=== PATIENT | male | born 1955 | race Caucasian/White ===

== ENCOUNTER 2023-08-15 07:57 | Outpatient (AMB) | payer MEDICARE, BC, SELFPAY ==
--- NOTE | 2023-08-15 08:21 | MHC.OFFVIS ---
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 He reports back in he became really ill and they couldn't figure out what was wrong with me , but this resulted in severe pain of the back and hips. He has constant pain throughout the body. Back End Developer Required: No Allergies No Known Allergies Allergy (Verified 08/15/23 08:28) Medication List - Last Reconciled 08/15/23 by Ambar Lewis MD aspirin 81 mg PO DAILY duloxetine 30 mg PO DAILY omeprazole 40 mg PO DAILY rosuvastatin 40 mg PO DAILY HPI HPI Comments History of Present Illness Details 67y/o male is referred here for hereditary and idiopathic neuropathy . He was diagnosed many years ago by Dr. Ruiz, was tried on Gabapentin . He also has h/o degenerative disc disease in the lumbar region , neurogenic claudication, seen by Dr. Clay and under care of [facility]. In spring he had sore throat , lost his hearing and had eye infection - does not know diagnosis but since then he had increased back pain with hip pain ( he always had back pain, this was different ) with spasm in the right hip pain. It was severe for 3 weeks . He was seen by [employer] and was prescribed duloxetine which is helping. He has numbness, tingling in kwaku feet, and once in a while in his hands .He also has sharp pain, stabbing pain in his feet mostly in the evenings and rest and has to get up and move around. He has leg cramps when he lies down and has his legs in a certain way It does not wake him up from sleep.He feels his gait has worsened. He has occasional urinary urgency . He has h/o BHAVANI on CPAP for over 20 years managed at [facility]. [facility] Medical History (Updated 08/15/23 @ 08:53 by Ambar Lewis MD) DJD (degenerative joint disease), lumbar Lyme arthritis Barretts esophagus CAD (coronary artery disease) COVID-19 Osteoarthritis BPH (benign prostatic hyperplasia) Erectile dysfunction RBBB (Unknown) Peripheral neuropathy Hyperlipidemia BHAVANI on CPAP Restless legs syndrome (RLS) Surgical History (Updated 08/15/23 @ 08:30 by Maggie Benjamin CMA) H/O shoulder surgery H/O: knee surgery History of carpal tunnel surgery Family History (Updated 08/15/23 @ 08:31 by Maggie Benjamin CMA) Father No problems noted. Mother No problems noted. (Updated 08/15/23 @ 08:32 by Maggie Benjamin CMA) Household Members: Spouse Housing: House Alcohol intake: current Patient Tobacco Use Status: Former Tobacco user Years Smoked: 20 years Physical Exam Vital Signs: Last Vital Signs Pulse 102 H 08/15/23 08:25 Resp 16 08/15/23 08:25 BP 120/72 08/15/23 08:25 Pulse Ox 95 08/15/23 08:25 Oxygen Delivery Method Room Air 08/15/23 08:25 BMI result Body Mass Index 32.1 Const General: cooperative and healthy appearing Nutritional Appearance: overweight Orientation/consciousness: patient oriented x3 Eyes Pupils: Equal, round and reactive pupils present Neuro General: patient oriented x3, gait normal, tone normal, moves all extremities and no focal motor deficits Cranial nerves: Yes Facial sensation intact/muscles of mastication intact, Yes Equal, round and reactive pupils present, Yes Bilaterally intact EOM present, Yes Nystagmus not present, Yes Normal facial strength present, Yes Midline tongue present and Yes Symmetric palate elevation present Cognition (Neuro): normal cognition Gait exam (Neuro): Antalgic gait present Motor exam (neuro): 5/5 motor strength present throughout and Normal motor muscle tone present throughout Deep tendon reflexes (DTR's): Right triceps reflex intensity grade: 1+, Left triceps reflex intensity grade: 1+, Rt Biceps (C5, C6): 1+, Left biceps reflex intensity grade: 1+, Right brachioradialis reflex intensity grade: 1+, Left brachioradialis reflex intensity grade: 1+, Right patellar reflex intensity grade: 1+ and Left patellar reflex intensity grade: 1+ Coordination: [id number] test normal Assessment & Plan Assessment & Plan (1) Peripheral neuropathy: Code(s): G62.9 - Polyneuropathy, unspecified (2) Restless legs syndrome (RLS): Code(s): G25.81 - Restless legs syndrome Plan I will reevaluate him with EMG NCS Continue duloxetine 30mg qd I will trial him on requip 0.25 mg 1-2 tabs at 4 pm and 9 pm Orders: Orders NE electromyogram (EMG) Today G62.9 - Polyneuropathy, unspecified Medications: New ropinirole 1-2 tab at 4pm , 1-2 tabs at 8 pm orally bedtime; 120 tabs 6RF Coding Level of Care Code New Pt Level 4 (24056) Diagnoses Peripheral neuropathy G62.9 Restless legs syndrome (RLS) G25.81
[2023-08-15 08:25] VITALS: BP 120/72; PULSE 102; RESP 16; O2SAT 95; BMI 32.1
== END 2023-08-15 09:03 | disposition home or self-care (01) ==
PROVIDERS: PCP Internal Medicine; Visit Provider Psychiatry & Neurology Neurology
DX: G62.9 Polyneuropathy, unspecified (principal); G25.81 Restless legs syndrome
CPT/HCPCS: 99204

== ENCOUNTER → 2023-08-15 07:57 | Outpatient (BNVA) | payer MEDICARE, BC, SELFPAY | PROVIDERS: PCP Internal Medicine; Visit Provider Psychiatry & Neurology Neurology | DX: G62.9 Polyneuropathy, unspecified (principal); G25.81 Restless legs syndrome | CPT/HCPCS: 99202 ==

== ENCOUNTER 2023-11-08 12:54 | Outpatient (REF) | payer MEDICARE, BC, SELFPAY ==
--- NOTE | 2023-11-08 13:00 | EMG_ITS ---
Chief complaint: Chronic numbness bilateral feet, diagnosed neuropathy by Dr. Ruiz several years ago Reason for referral: Evaluate for neuropathy Referred by: Dr. Lewis Procedure done: Bilateral lower extremity NCS/EMG Precautions and/or limitations: None The limb temperature was monitored continuously and remained between 32-36 degrees C during the performance of the NCS. Nerve Conduction Studies Anti Sensory Summary Table ?Stim Site NR Onset (ms) Norm Onset (ms) Peak (ms) Norm Peak (ms) O-P Amp (?V) Norm O-P Amp Site1 Site2 Delta-0 (ms) Dist (cm) Juan (m/s) Norm Juan (m/s) Left Sural Anti Sensory (Lat Mall) Calf NR <4.0 >5.0 Calf Lat Mall 14.0 Right Sural Anti Sensory (Lat Mall) Calf NR <4.0 >5.0 Calf Lat Mall 14.0 Motor Summary Table ?Stim Site NR Onset (ms) Norm Onset (ms) O-P Amp (mV) Norm O-P Amp iAmp (mV) Amp (1st) (%) Site1 Site2 Delta-0 (ms) Dist (cm) Juan (m/s) Norm Juan (m/s) Right Peroneal Motor (Ext Dig Brev) Ankle ? 6.0 <4.0 0.4 >2.5 0.5 100.0 Ankle Ext Dig Brev 6.0 0.0 B Fib ? 17.6 0.8 0.8 200.0 B Fib Ankle 11.6 41.0 35 >40 Poplt ? 18.7 0.8 0.9 200.0 Poplt B Fib 1.1 4.0 36 >40 Left Tibial Motor (Abd Gomez Brev) Ankle ? 6.0 <5 0.2 >2.5 0.3 100.0 Ankle Abd Gomez Brev 6.0 0.0 Knee ? 18.6 0.1 0.2 50.0 Knee Ankle 12.6 45.0 36 >40 Right Tibial Motor (Abd Gomez Brev) Ankle ? 4.4 <5 0.6 >2.5 0.8 100.0 Ankle Abd Gomez Brev 4.4 0.0 Knee ? 22.8 0.2 0.3 33.3 Knee Ankle 18.4 45.0 24 >40 EMG ?Side Muscle Nerve Root Ins Act Fibs Psw Amp Dur Poly Recrt Int Pat Comment Right AbdHallucis MedPlantar S1-2 Nml Nml Nml Nml Nml 0 Nml Complete Right AntTibialis Dp Br Peron L4-5 Nml Nml Nml Nml Nml 0 Nml Complete Right PostTibialis Tibial L5, S1 Nml Nml Nml Nml Nml 0 Nml Complete Right MedGastroc Tibial S1-2 Nml Nml Nml Nml Nml 0 Nml Complete Right VastusMed Femoral L2-4 Nml Nml Nml Nml Nml 0 Nml Complete Left AbdHallucis MedPlantar S1-2 Nml Nml Nml Nml Nml 0 Nml Complete Left AntTibialis Dp Br Peron L4-5 Nml Nml Nml Nml Nml 0 Nml Complete Left PostTibialis Tibial L5, S1 Nml Nml Nml Nml Nml 0 Nml Complete Left MedGastroc Tibial S1-2 Nml Nml Nml Nml Nml 0 Nml Complete Left VastusMed Femoral L2-4 Nml Nml Nml Nml Nml 0 Nml Complete Paraspinal EMG ?Side Muscle Nerve Root Ins Act Fibs Psw Comment Right Lumbar Upper Rami Nml Nml Nml Right Lumbar Mid Rami Nml Nml Nml Right Lumbar Lower Rami Nml Nml Nml Left Lumbar Upper Rami Nml Nml Nml Left Lumbar Mid Rami Nml Nml Nml Left Lumbar Lower Rami Nml Nml Nml FINDINGS: Right peroneal nerve showed prolonged distal latency, very small amplitudes and slow conduction velocity. No conduction block across the fibula neck. Right tibial nerve showed normal distal latency, very small amplitudes and slow conduction velocity. Left tibial nerve showed prolonged distal latency, very small amplitudes and slow conduction velocity. Bilateral sural nerves absent.. Concentric needle EMG was performed in selected muscles of the bilateral lower extremity and lumbar paraspinals. Study did not reveal signs of electric abnormalities as shown in the table below. IMPRESSION: 1. This is an abnormal study. 2. There is electrodiagnostic evidence for chronic symmetric peripheral neuropathy, axonal features. 3. There is no electrodiagnostic evidence for lumbosacral plexopathy or lumbar radiculopathy. CLINICAL COMMENT: Further clinical correlation recommended. Thank you for your kind referral. Ellyn Galeas MD, DENIS Board Certified, [place] [employer] and Rehabilitation (ABPMR) Board Certified, [place] Board of Electrodiagnostic Medicine (ABEM) CODIN [id number] x 2 MTDLevon
== END 2023-11-08 12:55 | disposition home or self-care (01) ==
LOC: HO.NEURO 12:54
PROVIDERS: Visit Provider Psychiatry & Neurology Neurology
DX: R20.0 Anesthesia of skin (principal); R20.2 Paresthesia of skin; G62.9 Polyneuropathy, unspecified
CPT/HCPCS: 95886; 95909

== ENCOUNTER → 2023-11-08 13:00 | Outpatient (BNV) | payer MEDICARE, BC, SELFPAY | PROVIDERS: Visit Provider Physical Medicine & Rehabilitation | DX: G62.89 Other specified polyneuropathies (principal); R20.2 Paresthesia of skin | CPT/HCPCS: 95886; 95909 ==

== ENCOUNTER 2023-12-29 08:49 | Outpatient (AMB) | payer MEDICARE, BC, SELFPAY ==
--- NOTE | 2023-12-29 08:50 | A.OFFVIS_ITS ---
Intake Vital Signs 12/29/23 08:55 Weight 260 lb 6 oz BP 120/70 Blood Pressure Location Lt brachial Position Sitting Pulse 81 Pulse Source Pulse Oximeter Pulse Oximetry (%) 97 Oxygen Delivery Method Room Air Intake Visit Reasons: 4 mo f/u-Hereditary&Idiopathic Neuropathy Intake Note: Patient presents for 4 month F/U. Allergies No Known Allergies Allergy (Verified 12/29/23 08:54) HPI HPI Comments History of Present Illness Details 68 y/o male presents for follow up of he reditary and idiopathic neuropathy and restless legs. Pt had a EMG/NCS done, it revealed chronic symmetric peripheral neuropathy, axonal features. He also has h/o degenerative disc disease in the lumbar region, neurogenic claudication, seen by Dr. Clay and under care of [facility]. Pt tried duloxetine 30 mg daily, but he did not like to take medications and off the duloxetine. He can have left calf shooting pain, it started maybe couple of months ago. He also has sharp pain, stabbing pain in his feet mostly in the evenings and rest and has to get up and move around. He has leg cramps when he lies down and has his legs in a certain way, but it does not wake him up from sleep. Pt has not tried requip yet. He has h/o BHAVANI on CPAP for over 20 years managed at [facility]. [facility] Medical History (Updated 12/29/23 @ 12:50 by Kourtney Carrera CNP) Numbness and tingling of both lower extremities DJD (degenerative joint disease), lumbar Lyme arthritis Barretts esophagus CAD (coronary artery disease) COVID-19 Osteoarthritis BPH (benign prostatic hyperplasia) Erectile dysfunction RBBB (Unknown) Peripheral neuropathy Hyperlipidemia BHAVANI on CPAP Restless legs syndrome (RLS) Surgical History H/O shoulder surgery H/O: knee surgery History of carpal tunnel surgery Family History Father No problems noted. Mother No problems noted. Social History Household Members: Spouse Housing: House Alcohol intake: current Comment: twice a week- socally Patient Tobacco Use Status: Former Tobacco user Years Smoked: 20 years Review of Systems Const All systems reviewed & are unremarkable except as noted in HPI and below Physical Exam Vital Signs: Last Vital Signs Pulse 81 12/29/23 08:55 BP 120/70 12/29/23 08:55 Pulse Ox 97 12/29/23 08:55 Oxygen Delivery Method Room Air 12/29/23 08:55 Const General: cooperative and healthy appearing Nutritional Appearance: overweight Orientation/consciousness: patient oriented x3 Eyes Pupils: Equal, round and reactive pupils present Neuro General: patient oriented x3, gait normal, tone normal, moves all extremities and no focal motor deficits Cranial nerves: Yes Facial sensation intact/muscles of mastication intact, Yes Equal, round and reactive pupils present, Yes Bilaterally intact EOM present, Yes Nystagmus not present, Yes Normal facial strength present, Yes Midline tongue present and Yes Symmetric palate elevation present Cognition (Neuro): normal cognition Gait exam (Neuro): Antalgic gait present Motor exam (neuro): 5/5 motor strength present throughout and Normal motor muscle tone present throughout Deep tendon reflexes (DTR's): Right triceps reflex intensity grade: 1+, Left triceps reflex intensity grade: 1+, Rt Biceps (C5, C6): 1+, Left biceps reflex intensity grade: 1+, Right brachioradialis reflex intensity grade: 1+, Left brachioradialis reflex intensity grade: 1+, Right patellar reflex intensity grad e: 1+ and Left patellar reflex intensity grade: 1+ Coordination: [id number] test normal Assessment & Plan Assessment & Plan (1) Peripheral neuropathy: Code(s): G62.9 - Polyneuropathy, unspecified (2) Restless legs syndrome (RLS): Code(s): G25.81 - Restless legs syndrome (3) Axonal neuropathy: Code(s): G62.89 - Other specified polyneuropathies Plan Requip 0.25 mg 1-2 tabs at 4 pm and 9 pm or as needed. Will check labs for reversible causes of neuropathy. Orders: Orders Comprehensive Met. Panel Today G62.89 - Other specified polyneuropathies, R20.0 - Anesthesia of skin, R20.2 - Paresthesia of skin Vitamin B12 and Folate Today G62.89 - Other specified polyneuropathies, R20.0 - Anesthesia of skin, R20.2 - Paresthesia of skin Erythrocyte Sedimentation Rate Today G62.89 - Other specified polyneuropathies, R20.0 - Anesthesia of skin, R20.2 - Paresthesia of skin Complete Blood Count Auto Diff Today - Other specified polyneuropathies, R20.0 - Anesthesia of skin, R20.2 - Paresthesia of skin TSH reflex Free T4 Today - Other specified polyneuropathies, R20.0 - Anesthesia of skin, R20.2 - Paresthesia of skin Vitamin D 25-OH (D2 and D3) Today - Other specified polyneuropathies, R20.0 - Anesthesia of skin, R20.2 - Paresthesia of skin BAL Reflex Titer and Pattern Today - Other specified polyneuropathies, R20.0 - Anesthesia of skin, R20.2 - Paresthesia of skin Coding Level of Care Code Est Pt Level 3 (56379) Diagnoses Peripheral neuropathy G62.9 Restless legs syndrome (RLS) G25.81 Axonal neuropathy
[2023-12-29 08:55] VITALS: BP 120/70; PULSE 81; O2SAT 97
== END 2023-12-29 09:20 | disposition home or self-care (01) ==
PROVIDERS: PCP Internal Medicine; Visit Provider Nurse Practitioner Family
DX: G62.9 Polyneuropathy, unspecified (principal); G25.81 Restless legs syndrome; G62.89 Other specified polyneuropathies
CPT/HCPCS: 99213

== ENCOUNTER → 2023-12-29 08:49 | Outpatient (BNVA) | payer MEDICARE, BC, SELFPAY | PROVIDERS: PCP Internal Medicine; Visit Provider Nurse Practitioner Family | DX: G62.9 Polyneuropathy, unspecified (principal); G25.81 Restless legs syndrome; G62.89 Other specified polyneuropathies | CPT/HCPCS: 99212 ==

== ENCOUNTER 2024-01-02 14:15 | Outpatient (REF) | payer MEDICARE, BC, SELFPAY ==
[2024-01-02 16:52] LABS: MANUAL DIFF FLAG NO
[2024-01-02 17:06] LABS: Basophils Absolute Auto 0.1 X10*3/uL (0.0-0.2); Basophils Percent Auto 0.8 % (0-2); Eosinophils Absolute Auto 0.3 X10*3/uL (0.0-0.4); Eosinophils Percent Auto 3.6 % (0-4); Hematocrit 45.5 % (42.0-52.0); Hemoglobin 15.5 g/dl (14.0-18.0); Imm Gran Abs Auto 0.02 X10*3/uL (0.00-0.03); Imm Gran Pct Auto 0.2 % (0.0-0.4); Lymphocytes Absolute Auto 2.6 X10*3/uL (1.2-4.9); Lymphocytes Percent Auto 30.9 % (20-40); Mean Corpuscular HGB Conc 34.1 g/dl (31.0-36.0); Mean Corpuscular Hemoglobin 32.1 pg (27.0-33.0); Mean Corpuscular Volume 94.2 fL (80.0-98.0); Mean Platelet Volume 12.5 fL (9.4-12.4); Monocytes Absolute Auto 0.6 X10*3/uL (0.1-1.2); Monocytes Percent Auto 7.2 % (2-11); Neutrophils Absolute Auto 4.8 x10*3/uL (2.0-8.3); Neutrophils Percent Auto 57.3 % (45-73); Platelet Count 206 X10*3/uL (160-400); Red Blood Count 4.83 X10*6/uL (4.60-5.80); Red Cell Distribution Width 12.7 % (11.0-16.0); White Blood Count 8.5 X10*3/uL (4.8-10.8)
[2024-01-02 17:37] LABS: Alanine Aminotransferase 20 U/L (0-40); Albumin Level 4.4 g/dL (3.5-5.0); Alkaline Phosphatase 63 U/L (39-117); Anion Gap 13 (12-20); Aspartate Amino Transferase 26 U/L (5-37); Bilirubin Total 0.9 mg/dL (0.0-1.0); Blood Urea Nitrogen 20 mg/dL (9-16); Calcium 9.7 mg/dL (8.4-10.2); Carbon Dioxide 28 mmol/L (22-29); Chloride 106 mmol/L (96-108); Estimated Glomerular Filt Rate > 60; Glucose Random 96 mg/dL (60-115); Potassium 4.7 mmol/L (3.3-5.1); Sodium 142 mmol/L (135-145); Total Protein 7.3 g/dL (6.5-8.0)
[2024-01-02 17:50] LABS: Erythrocyte Sedimentation Rate 3 MM/HR (0-15)
[2024-01-02 17:55] LABS: TSH reflex Free T4 1.16 uIU/mL (0.32-4.0)
[2024-01-02 18:06] LABS: Folate 11.2 ng/mL (> or = 4.0); Vitamin B12 407 pg/mL (200-900)
[2024-01-05 12:04] LABS: ANA Pattern 2 Nuclear, Speckled; Anti Nuclear Antibody Screen POSITIVE (NEGATIVE)
[2024-01-06 13:53] LABS: Vitamin D 25-OH, D2 <4 ng/mL; Vitamin D 25-OH, D3 23 ng/mL; Vitamin D 25-OH, Total 23 ng/mL (30-100)
== END 2024-01-02 14:16 | disposition home or self-care (01) ==
LOC: HO.HKASLDS 14:15
PROVIDERS: Visit Provider Nurse Practitioner Family
DX: R20.0 Anesthesia of skin (principal); R20.2 Paresthesia of skin; G62.89 Other specified polyneuropathies
CPT/HCPCS: 36415; 80053; 82306; 82607; 82746; 84443; 85025; 85652; 86038; 86039

== ENCOUNTER 2024-04-08 10:53 | Outpatient (AMB) | payer MEDICARE, BC, SELFPAY ==
--- NOTE | 2024-04-08 10:54 | A.OFFVIS_ITS ---
Vital Signs 04/08/24 11:01 Height 6 ft 3 in Weight 248 lb 14.43 oz BMI 31.1 BP 120/82 Blood Pressure Location Rt brachial Position Sitting Pulse 67 Pulse Source Pulse Oximeter Pulse Oximetry (%) 92 Oxygen Delivery Method Room Air Intake Visit Reasons: Abnormal lab/lm Intake Note: Patient presents for Abnormal lab. Allergies No Known Allergies Allergy (Verified 04/08/24 10:59) Medication List - Last Reconciled 04/08/24 by Olayinka Barrett MD apixaban (Eliquis) 5 mg PO BID omeprazole 40 mg PO DAILY rosuvastatin 40 mg PO DAILY HPI Comments Details: This is a 68-year-old male who presents for evaluation of a positive BAL. Patient states that started having neuropathy symptoms in his lower extremities around 20 years ago. He has been on different medications such as duloxetine. 3-4 years ago he was evaluated by customer service supervisor Dr. Felix for a positive BAL. Patient states that he had blood work done and it did not show any specific disease. Patient has known DA of right bundle noemi block. He was recently evaluated by a director regulatory compliance and was found to be in AFib. He had further testing for including coronary CT angiogram and a nuclear scan for amyloidosis patient was told that he might have recommended doses. He also had a heart monitor placed. Started on Eliquis. With regards to his joint. He states that he has always had multiple joint pain including his hands. When he wakes up in the morning he has significant stiffness of his hands that lasts a few minutes. With opening and closing his hands. He had multiple trigger finger release procedures in both hands over the years. He stated that his hands have become bigger over the years. He had a right knee replacement. He has known arthritis in his left knee but was told that it was not time for replacement. He denies any skin rashes. He denies any history of DVT/PE. He is unaware of any family history of an autoimmune rheumatic disease. He denies any fevers or unintentional weight loss. [facility] Medical History (Updated 04/08/24 @ 11:37 by Olayinka Barrett MD) Afib Numbness and tingling of both lower extremities DJD (degenerative joint disease), lumbar Lyme arthritis Barretts esophagus CAD (coronary artery disease) COVID-19 Osteoarthritis BPH (benign prostatic hyperplasia) Erectile dysfunction RBBB (Unknown) Peripheral neuropathy Hyperlipidemia BHAVANI on CPAP Restless legs syndrome (RLS) Surgical History H/O shoulder surgery H/O: knee surgery History of carpal tunnel surgery Family History Father No problems noted. Mother No problems noted. Social History Household Members: Spouse Housing: House Alcohol intake: current Comment: twice a week- socally Patient Tobacco Use Status: Former Tobacco user Years Smoked: 20 years Review of Systems Const Denies fever(s) and Denies weight loss Eyes Reports itchy eyes Card Reports irregular heart rhythm Musc Reports back pain, Reports arthralgias, Denies joint swelling, Reports stiffness and Reports tingling Neuro Reports tingling and Reports paresthesias Aller/Immun Reports itchy eyes Physical Exam Vital Signs: Last Vital Signs Pulse 67 04/08/24 11:01 BP 120/82 04/08/24 11:01 Pulse Ox 92 04/08/24 11:01 Oxygen Delivery Method Room Air 04/08/24 11:01 BMI result Body Mass Index 31.1 Const General: cooperative, healthy appearing and comfortable Nutritional Appearance: obese Orientation/consciousness: patient oriented x3 Limitations: no limitations HEENT Other: No enlarged tongue Head: Yes normocephalic and Yes atraumatic Mouth: moist mucous membranes Resp Effort & Inspection: normal respiratory effort and able to speak in complete sentences Cardio Rhythm: abnormal rhythm irregularly irregular Neuro General: patient oriented x3 Extrem Other: Relatively large hands No active synovitis however Prominent Heberden's and Francisco's nodes Normal nailfold capillaroscopy Left knee crepitus Assessment & Plan Assessment & Plan (1) BAL positive: Code(s): R76.8 - Other specified abnormal immunological findings in serum Category: Medical Plan: This is a 68-year-old male who presents for evaluation of positive BAL. Patient has had peripheral neuropathy for many years. Recently he was told that he might have cardiac sarcoidosis. He was evaluated by a customer service supervisor Dr. Felix 3-4 years ago and no evidence of an autoimmune rheumatic disease was found. I I would like to review the blood work ordered by Dr. Ahmad 1st before. Accordingly I will call patient. Plan I spent 30 minutes reviewing patient's chart, evaluating patient, counseling patient and documenting in the chart Coding Level of Care Code New Pt Level 3 (10271) Diagnoses BAL positive R76.8
[2024-04-08 11:01] VITALS: BP 120/82; PULSE 67; O2SAT 92; BMI 31.1
== END 2024-04-08 11:44 | disposition home or self-care (01) ==
PROVIDERS: PCP Internal Medicine; Visit Provider Student in an Organized Health Care Education/Training Program
DX: R76.8 Other specified abnormal immunological findings in serum (principal)
CPT/HCPCS: 99203

== ENCOUNTER → 2024-04-08 10:53 | Outpatient (BNVA) | payer MEDICARE, BC, SELFPAY | PROVIDERS: PCP Internal Medicine; Visit Provider Student in an Organized Health Care Education/Training Program | DX: R76.8 Other specified abnormal immunological findings in serum (principal) | CPT/HCPCS: 99202 ==

== ENCOUNTER 2024-06-27 08:50 | Outpatient (AMB) | payer MEDICARE, BC, SELFPAY ==
[2024-06-27 09:03] VITALS: BP 102/68; PULSE 76; RESP 17; O2SAT 96; BMI 31.5
--- NOTE | 2024-06-27 09:03 | MHC.OFFVIS ---
Vital Signs 06/27/24 09:03 Height 6 ft 3 in Weight 252 lb 4 oz BMI 31.5 BP 102/68 Blood Pressure Location Rt brachial Position Sitting Respiration 17 Pulse 76 Pulse Source Palpation Pulse Oximetry (%) 96 Oxygen Delivery Method Room Air Intake Visit Reasons: Follow up Hereditary/Idiopathic Neuropathy Intake Note: Pt presents for a 6 month follow up for peripheral neuropathy and RLS. Banquet Lead Required: No Allergies No Known Allergies Allergy (Verified 06/27/24 09:03) HPI Comments Details: 68 y/o male presents for follow up of hereditary and idiopathic neuropathy and restless legs. He did not start requip . He was concerned about side effects and his symptoms are mild Pt had a EMG/NCS done, it revealed chronic symmetric peripheral neuropathy, axonal features. 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 He also has h/o degenerative disc disease in the lumbar region, neurogenic claudication, seen by Dr. Clay and under care of [facility]. Pt tried duloxetine 30 mg daily, but he did not like to take medications and off the duloxetine. He can have left calf shooting pain, it started maybe couple of months ago. He also has sharp pain, stabbing pain in his feet mostly in the evenings and rest and has to get up and move around. He has leg cramps when he lies down and has his legs in a certain way. He has h/o BHAVANI on CPAP for over 20 years managed at [facility]. [facility] Medical History Afib Numbness and tingling of both lower extremities DJD (degenerative joint disease), lumbar Lyme arthritis Barretts esophagus CAD (coronary artery disease) COVID-19 Osteoarthritis BPH (benign prostatic hyperplasia) Erectile dysfunction RBBB (Unknown) Peripheral neuropathy Hyperlipidemia BHAVANI on CPAP Restless legs syndrome (RLS) Surgical History H/O shoulder surgery H/O: knee surgery History of carpal tunnel surgery Family History Father No problems noted. Mother No problems noted. Social History Household Members: Spouse Housing: House Alcohol intake: current Comment: twice a week- socally Patient Tobacco Use Status: Former Tobacco user Years Smoked: 20 years Physical Exam Vital Signs: Last Vital Signs Pulse 76 06/27/24 09:03 Resp 17 06/27/24 09:03 BP 102/68 06/27/24 09:03 Pulse Ox 96 06/27/24 09:03 Oxygen Delivery Method Room Air 06/27/24 09:03 BMI result Body Mass Index 31.5 Const General: cooperative and healthy appearing Nutritional Appearance: overweight Orientation/consciousness: patient oriented x3 Eyes Pupils: Equal, round and reactive pupils present Neuro General: patient oriented x3, gait normal, tone normal, moves all extremities and no focal motor deficits Cranial nerves: Yes Facial sensation intact/muscles of mastication intact, Yes Equal, round and reactive pupils present, Yes Bilaterally intact EOM present, Yes Nystagmus not present, Yes Normal facial strength present, Yes Midline tongue present and Yes Symmetric palate elevation present Cognition (Neuro): normal cognition Gait exam (Neuro): Antalgic gait present Motor exam (neuro): 5/5 motor strength present throughout and Normal motor muscle tone present throughout Deep tendon reflexes (DTR's): Right triceps reflex intensity grade: 1+, Left triceps reflex intensity grade: 1+, Rt Biceps (C5, C6): 1+, Left biceps reflex intensity grade: 1+, Right brachioradialis reflex intensity grade: 1+, Left brachioradialis reflex intensity grade: 1+, Right patellar reflex intensity grade: 1+ and Left patellar reflex intensity grade: 1+ Coordination: [id number] test normal Assessment & Plan Assessment & Plan (1) Restless legs syndrome (RLS): Code(s): G25.81 - Restless legs syndrome Category: Medical (2) 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 Barrett - no evidence of rheumatology F/u with Cardiology for amyloidosis. Coding Level of Care Code Est Pt Level 4 (24575) Diagnoses Restless legs syndrome (RLS) G25.81 Axonal neuropathy G62.89
== END 2024-06-27 09:36 | disposition home or self-care (01) ==
PROVIDERS: PCP Internal Medicine; Visit Provider Psychiatry & Neurology Neurology
DX: G25.81 Restless legs syndrome (principal); G62.89 Other specified polyneuropathies
CPT/HCPCS: 99214

== ENCOUNTER → 2024-06-27 08:50 | Outpatient (BNVA) | payer MEDICARE, BC, SELFPAY | PROVIDERS: PCP Internal Medicine; Visit Provider Psychiatry & Neurology Neurology | DX: G25.81 Restless legs syndrome (principal); G62.89 Other specified polyneuropathies | CPT/HCPCS: 99212 ==